=== PATIENT | male | born 1940 | race Caucasian/White ===

== ENCOUNTER 2018-12-26 21:33 | Inpatient (IN) ==
[2018-12-26] MEDS ORDERED: ZOFRAN ODT PO ONE (22:25)
[2018-12-26] MEDS ORDERED: NS 1,000 ML IV ONE (22:37)
--- NOTE | 2018-12-26 23:52 | PROVIDER DOCUMENTATION ---
This chart was entered by Nuzhat Can Scribe, acting as scribe for Luh Noonan MD. HPI-Abdominal Pain/GI Problem - General Chief Complaint: Nausea/Vomiting Stated Complaint: ON ANTIBIOTICS, NAUSEA, VOMITING Time Seen by Provider: 12/26/18 22:37 Source: patient Allergies/Adverse Reactions: Patient Allergies Allergy/AdvReac Type Severity Reaction Status Date / Time codeine Allergy Severe NAUSEA/VOMI Verified 09/24/15 17:14 TING Home Medications: Home Medication List Medication Instructions Recorded Confirmed Last Taken Type Digoxin 125 mcg PO DAILY 09/24/15 09/24/15 09/24/15 History 125 mcg Isosorbide Mononitrate [Isosorbide 30 mg PO DAILY 09/24/15 09/24/15 09/24/15 History Mononitrate ER] 30mg Metoprolol Tartrate 25 mg PO BID 09/24/15 09/24/15 09/24/15 History 12.5 mg Simvastatin 20 mg PO DAILY 09/24/15 09/24/15 09/23/15 History 10mg Warfarin Sodium [Coumadin] 2 mg PO DAILY 09/24/15 09/24/15 09/24/15 History 2mg Aspirin 81 mg PO DAILY #0 chewtab 09/29/15 Unknown Rx Digoxin [Lanoxin] 125 microgm PO DAILY #0 tablet 09/29/15 Unknown Rx Haloperidol [Haldol] 2 mg PO QHS #30 tablet 09/29/15 Unknown Rx Isosorbide Mononitrate E.r. [Imdur] 30 mg PO DAILY #0 tablet 09/29/15 Unknown Rx Levofloxacin [Levaquin] 750 mg PO DAILY #7 tablet 09/29/15 Unknown Rx Lorazepam [Ativan] 0.5 mg PO TID PRN #30 tablet 09/29/15 Unknown Rx Metoprolol [Lopressor] 12.5 mg PO BID #0 tablet 09/29/15 Unknown Rx SIMVAstatin [Zocor] 10 mg PO QHS #0 tablet 09/29/15 Unknown Rx Saline Nasal [place] [[place] Nasal 1 applicatn ZEYNEP PRN PRN #1 bottle 09/29/15 Unknown Rx [place]] Warfarin [Coumadin] 2.5 mg PO QHS #30 tablet 09/29/15 Unknown Rx Ciprofloxacin HCl [Cipro] 250 mg PO BID #14 tab 12/14/18 Unknown Rx - History of Present Illness-ABD Nature of Presenting Problems: Pt is 78/M presenting to ED w/ left mid-ABD pain and vomiting for a few days now. pt was recently seen for diverticulitis and placed on abx cipro and flagyl. denied diarrhea or fever. Review of Systems - Adult - REVIEW OF SYSTEMS - ADULT Constitutional: reports: no symptoms reported Eyes: reports: no symptoms reported Ears, Nose, Mouth & Throat: reports: no symptoms reported Cardiovascular: reports: no symptoms reported Respiratory: reports: no symptoms reported Gastrointestinal: reports: no symptoms reported Genitourinary: reports: no symptoms reported Musculoskeletal: reports: no symptoms reported Integumentary: reports: no symptoms reported Neurological: reports: no symptoms reported Psychiatric: reports: no symptoms reported Endocrine: reports: no symptoms reported Hematologic/Lymphatic: reports: no symptoms reported Allergic/Immunologic: reports: no symptoms reported All Other Systems: Reviewed and Negative Past History - Adult - PAST MEDICAL HISTORY-ADULT Review of Records: reports: Old Records Reviewed, Nursing Assessment Review, Medications Reviewed, Social history reviewed & non-contributory. Major Childhood Illnesses: reports: denies history Cardiovascular: reports: denies history Respiratory: reports: denies history Gastrointestinal: reports: denies history Obstetrical/Gynecological: reports: denies history Genitourinary: reports: denies history Musculoskeletal: reports: denies history Neurological: reports: denies history Endocrine/Immune: reports: denies history Other Conditions: reports: denies history - IMMUNIZATION STATUS Childhood Immunizations: See Nurse Assessment Flu Vaccine: See Nurse Assessment - FAMILY HISTORY Family History: reviewed, not pertinent - SOCIAL HISTORY Smoking: denies Substance Use: none/never Alcohol Use Frequency: never Living Situation: family Physical Exam-General - PHYSICAL EXAM-ADULT Initial Vital Signs Reviewed: Yes - CONSTITUTIONAL General Appearance: appears well, alert, no apparent distress - EYES Eyes: PERRL/EOMI, pink conjunctivae - HEAD, EARS, NOSE, MOUTH & THROAT HENMT: normocephalic/atraumatic, moist mucous membranes, normal ENT inspection - NECK Neck: non-tender, full range of motion, supple - RESPIRATORY Respiratory: chest non-tender, lungs clear, normal breath sounds, no pleuratic chest pain, no respiratory distress - CARDIOVASCULAR Cardiovascular: normal peripheral pulses (tachycardia), other (pitting edema 1+) - GASTROINTESTINAL (ABDOMEN) Abdominal Exam: guarding, rigid, tenderness (left mid-abd) - MUSCULOSKELETAL Back Exam: CVA tenderness (left) Extremity: normal range of motion, non-tender, normal gait - SKIN Integumentary: normal color, normal turgor, warm/dry - NEUROLOGIC Neurologic: grossly normal, no motor/sensory deficits - PSYCHIATRIC Psych/Mental Status: normal thought content, normal thought process, oriented x 3 Progress - PLAN OF CARE/RESULTS Progress/Plan/Lab Results: Vital Signs - 8 hr 12/26/18 21:36 Temperature 97.8 F Pulse Rate 96 H Respiratory Rate 20 Blood Pressure 132/74 O2 Sat by Pulse Oximetry 100 Orders Category Date Time Status Cardiac Monitoring DIRECTED Care 12/26/18 22:36 Active Oxygen Therapy- ED Nursing DIRECTED Care 12/26/18 22:36 Active Saline Loc NOW Care 12/26/18 22:[address] ABD/PELVIS W/IV CONT ONLY [CT] Stat Exams 12/26/18 22:35 Ordered CBC WITH ELECTRONIC DIFF [HEME] Stat Lab 12/26/18 22:34 Uncollected CK PROFILE [SP CHEM] Stat Lab 12/26/18 22:36 Uncollected COMPREHENSIVE METABOLIC PANEL [CHEM] Stat Lab 12/26/18 22:34 Uncollected DIGOXIN [TDM] Stat Lab 12/26/18 22:35 Ordered PRO B-NATRIURETIC PEPTIDE Stat Lab 12/26/18 22:36 Uncollected PROTIME WITH INR [COAG] Stat Lab 12/26/18 22:36 Uncollected PTT [COAG] Stat Lab 12/26/18 22:36 Uncollected TROPONIN T Stat Lab 12/26/18 22:34 Uncollected URINALYSIS W/POSS RFLX CULT [URINALYSIS] Stat Lab 12/26/18 22:34 Uncollected Ondansetron Odt [Zofran Odt] Med 12/26/18 22:25 Discontinued 4 mg PO NOW ONE CP/SOB/Palp >45 yrs of Age Stat Oth 12/26/18 22:36 Ordered EKG [EKG] NOW Ther 12/26/18 22:34 Ordered - CONSULTS/PCP/HOSPITALIST Notification #1 *Consult/PCP/Hospitalist*: Dr. Terry Time Discussed: 23:47 Consult Disposition: Admit (to hospitalist and NGT, will see in AM) #2 Consult: Dr. Cruz Time Discussed: 23:48 Consult Disposition: Admit Departure - Departure Date of Disposition Decision: 12/26/18 Time of Disposition Decision: 23:48 DIAGNOSIS: Small bowel obstruction Disposition: ADMITTED INPATIENT 09 Certified Medical Emergency: Emergent Condition: Stable Referrals and Follow-Ups: Italo Pierce MD [Primary Care Provider] - - Critical Care Note This patient required my direct & personal management of CC.: No Attestation - Physician/ MARY Attestation The physician spent face to face time with patient:: Yes Advanced Practice Provider documentation review:: Supervising physician onsite and consulted in the evaluation and care of this patient. The physician did have a face to face encounter with the patient. This chart was documented by the indicated scribe, (Nuzhat Can, Vicibarlene) and accurately reflects the services I performed and decisions made by me, Luh Noonan MD, as attested by the provider's signature.
[2018-12-26 23:54] LABS: BASO# 0.03 X1000 (0.0-0.2); BASO% 0.4 % (0.0-0.8); EOS# 0.07 X1000 (0.0-0.7); EOS% 0.9 % (0.0-10.0); HEMATOCRIT 43.9 % (42.0-52.0); HEMOGLOBIN 14.9 g/dL (14.0-18.0); IMM GRAN# 0.02 X1000 (0.0-0.04); IMM GRAN% 0.3 % (0.0-0.5); LYMPH# 1.47 X1000 (1.2-3.4); LYMPH% 18.4 % (20.5-51.1); MCH 31.3 PG (27-31); MCHC 33.9 g/dL (33-37); MCV 92.2 FL (81-99); MONO# 0.42 X1000 (0.11-0.59); MONO% 5.3 % (1.7-9.3); MPV 9.5 FL (7.4-10.4); NEUT# 5.96 X1000 (1.4-6.5); NEUT% 74.7 % (42.2-75.2); PLT 250 X1000 (130-400); RBC 4.76 XMIL (4.7-6.1); RDW 14.9 % (11.5-14.5); WBC 7.97 X1000 (4.8-10.8)
[2018-12-27] MEDS ORDERED: ATIVAN IV ONE (00:07)
[2018-12-27] MEDS ORDERED: ATIVAN ONE (00:10)
[2018-12-27 00:20] LABS: ALB/GLOB RATIO 1.1; ALBUMIN 4.2 g/dL (3.5-5.0); CALCIUM 9.8 mg/dL (8.8-10.2); CREATININE 1.2 mg/dL (0.7-1.2); POTASSIUM 4.2 mmol/L (3.5-5.1); TOTAL BILIRUBIN 0.77 mg/dL (0.20-1.00)
[2018-12-27 00:25] LABS: URINE SOURCE CLEAN CATCH
[2018-12-27 00:34] LABS: INR 3.07; PROTIME 33.9 Seconds (11.0-16.0)
[2018-12-27 00:35] LABS: PTT 44.3 Seconds (22.3-41.8)
[2018-12-27 00:37] LABS: BILIRUBIN URINE NEGATIVE (NEGATIVE); BLOOD URINE NEGATIVE (NEGATIVE); COLOR YELLOW; GLUCOSE URINE NEGATIVE (NEGATIVE); KETONE URINE 10 mg/dL (NEGATIVE); LEUKOCYTES URINE NEGATIVE (NEGATIVE); NITRITE URINE NEGATIVE (NEGATIVE); PH URINE 6.5; PROTEIN URINE TRACE mg/dL (NEGATIVE); TURBIDITY URINE CLEAR (CLEAR); UROBILINOGEN URINE NORMAL (NORMAL)
[2018-12-27 00:38] LABS: UR EPITHELIAL CELLS <10 /HPF (<10); URINE BACTERIA NEGATIVE /HPF; URINE RBC <10 /HPF (<10); URINE WBC <10 /HPF (<10)
[2018-12-27 00:43] LABS: SP GRAVITY URINE 1.015
[2018-12-27] MEDS ORDERED: ZANTAC 50 MG in NS 50 ML IV SCH (01:00)
[2018-12-27] MEDS ORDERED: TYLENOL PR PRN (03:02)
--- NOTE | 2018-12-27 03:31 | HISTORY AND PHYSICAL ---
CHIEF COMPLAINT: Abdominal pain and nausea, vomiting. HISTORY OF PRESENT ILLNESS: This is a 78-year-old gentleman of Dr. Muniz who comes in with abdominal pain. He has had nausea and vomiting for about 2 days. Initially, he had problems, I think, starting on the , and then the . I think he was in the ER on the , and then the , it looks like. On the , he had I guess urinary retention, but his tests were negative. On the , he had a CT scan which showed diverticulosis with diverticulitis, and he was treated with Cipro and Flagyl, which he has been on since the . I think he clinically improved up until 2 days ago, when he started having nausea, vomiting, and he did not have a bowel movement, by report. He reports nonbloody emesis, kind of yellowish, nonbilious, but it has been intractable. He has not really been able to keep anything down. He is also describing epigastric pain. CT scan revealed a partial small-bowel obstruction by preliminary report, and rest of test was negative. He had an abrupt transition point with aortic bifurcation, and there is prominent sigmoid diverticula, etiology is uncertain, but was an admitted for treatment. He has lost 20 pounds in the last 3 weeks. PAST MEDICAL HISTORY: 1. Hypertension. 2. Dyslipidemia. 3. Atrial fibrillation. 4. CAD status post stent. 5. History of CVA. 6. Benign prostatic hypertrophy. 7. Diverticulosis. 8. Right lower extremity ORIF. 9. Right clavicle fracture. PAST SURGICAL HISTORY: 1. Right total knee replacement. 2. PCI. 3. Right clavicle fracture repair. 4. Dupuytren's contracture repair. FAMILY HISTORY: Positive for CAD in his father. SOCIAL HISTORY: No tobacco or ethanol. ALLERGIES: He is allergic to codeine alone. MEDICATION LIST: He is currently on Coumadin for atrial fibrillation, digoxin, Imdur, metoprolol, simvastatin, Haldol, Zocor, aspirin, Ativan, Cipro, Levaquin, Lopressor. PHYSICAL EXAM: VITAL SIGNS: Blood pressure is 132/74, heart rate of 96, respiratory rate 20, temperature 97.8 degrees, 100% on room air. CARDIOVASCULAR: Regular rate and rhythm. PULMONARY: Bilateral breath sounds. Clear to auscultation. GASTROINTESTINAL: Soft. He was distended. He had some mild tenderness throughout his abdomen, mostly in the lower quadrants. He had no rebound, no guarding. MUSCULOSKELETAL: 4/5 in all 4 extremities. NEUROLOGIC: Nonfocal. SKIN: Clean, dry, intact. LABORATORY DATA: White count 7, hemoglobin and hematocrit 14 and 43, platelets 250,000. INR is 3. BUN and creatinine are 25 and 1.2. AST and ALT were 62 and 58, respectively. ProBNP was 2161. Lipase was mildly elevated at 77, but he has had protracted nausea and vomiting. ASSESSMENT: A 78-year-old male with history of abdominal pain, nausea, vomiting, and now CT findings consistent with a small-bowel obstruction without a clear etiology. There is concern over diverticulitis. 1. Partial small-bowel obstruction. We will initiate nasogastric decompression. Continue IV fluids. Continue analgesics, antiemetics, and question about antibiotics. He does not have a white count. He had recent diverticulitis and he has only completed 8 days of antibiotics. I will initiate some Zosyn. I would have primary team re-evaluate in the morning if this is necessary, once we get a follow-up report on his radiology report, which will be Dr. Pierce, his primary care physician, and re-evaluate. 2. Atrial fibrillation. We will continue to monitor. He may need his other medications once they are resolved. He is on several medications, but the home medication list has a lot of duplications. I am holding his Coumadin now in case he needs any surgical instrumentation. We will follow his PT/INR. 3. Atrial fibrillation. Appears to be rate controlled. Again, holding his PT/INR and we will continue to monitor. 4. Possible history of vascular dementia. He seems like he is doing pretty well. I will put in some p.r.n. Haldol. Apparently, he has needed that as an outpatient in case there is any agitation, but he seems to be pretty together currently. DISPOSITION: Pending his clinical status. Dr. Terry will evaluate in the morning. We will continue conservative measures and check repeat plain films tomorrow and follow. Resume care per Dr. Pierce or covering physician in the morning. cc: Flo Cruz MD
[2018-12-27] MEDS: PEPCID IV SCH ×2 (03:45→17:39)
[2018-12-27] MEDS: NS 1,000 ML IV SCH ×3 (03:45→23:33)
[2018-12-27] MEDS: SODIUM CHLORIDE 0.9% INJ SCH (03:45)
[2018-12-27] MEDS: ZOSYN 3.375 GM in NS 50 ML IV SCH ×4 (03:45→20:47)
--- NOTE | 2018-12-27 06:35 | Diag Imaging Result Doc PS360 ---
CT ABD/PELVIS W/IV CONT ONLY - 12/26/2018 INDICATION: pyelonephritis COMPARISON: 12/14/2018 FINDINGS: Stable cardiomegaly. Stable calcified pleural plaques in the lung bases bilaterally consistent with old asbestos exposure. There is also mild fibrosis in the lung bases. There is advanced coronary artery disease. There is a high-grade proximal small bowel obstruction, with distended small bowel loops and severe distention of the stomach. This is in the central abdomen, just in front of the aorta. Otherwise abdominal organs remain normal. There is severe diverticulosis of the colon. Urinary bladder, prostate, and rectum are normal. There is severe peripheral vascular disease. There are moderate degenerative changes of the spine. No acute or suspicious bony lesion. IMPRESSION: 1. High-grade proximal small bowel obstruction. This has occurred in the region of the subtle inflammation on the prior exam. This may represent a mass or enteritis. 2. Cardiomegaly and pulmonary fibrosis. 3. Severe diverticulosis of the sigmoid colon. This exam was performed using automated exposure control, adjustment of mA or kV according to patient size, and/or use of iterative reconstruction technique Electronically signed by Cody Allen 12/27/2018 6:32 AM
--- NOTE | 2018-12-27 06:37 | GENERAL SURGERY CONSULTATION ---
DATE: 12/27/2018 DATE AND TIME OF EXAM: 12/27/2018 at 6 o'clock in the morning. HISTORY OF PRESENT ILLNESS: Mr. Waters is a pleasant 78-year-old gentleman who presented to the emergency department last night with refractory vomiting that has been present for the past few days. He has some symptoms dating back a couple weeks ago for which he has been treated for diverticulitis as an outpatient with p.o. antibiotics. However, the past few days he has developed refractory vomiting with periumbilical pain. CT scan was done last night which shows significant diverticula with some inflammation in the sigmoid loop. It apparently involve a portion of his small bowel as well. He has a transition point in the small bowel just cephalad to his sigmoid loop. This appears to be the point of obstruction. PAST MEDICAL HISTORY: Pertinent for atrial fibrillation for which he has taken Coumadin for many years. He has had a coronary stent. He has hypertension, dyslipidemia, history of CVA, benign prostatic hypertrophy. PAST SURGICAL HISTORY: Includes a right total knee replacement, right clavicle fracture repair, Dupuytren's contraction repair. SOCIAL HISTORY: Denies smoking or alcohol usage. He is , has an attentive . FAMILY HISTORY: Pertinent for coronary artery disease. MEDICATIONS: Listed includin. Metoprolol. 2. Digoxin. 3. Imdur. 4. Coumadin. 5. Simvastatin. 6. Aspirin. 7. Haldol. 8. Ativan. 9. Most recently ciprofloxacin. ALLERGIES: Codeine. REVIEW OF SYSTEMS: Negative except as noted above. He denies any chest pain, shortness of breath. PHYSICAL EXAMINATION: Vital Signs: He is afebrile, heart rate 70, respiratory rate 18, blood pressure 120/75. Lungs: He has bilateral breath sounds. Heart: Irregular rate and rhythm. Abdomen: Soft. Bowel sounds are active. No hernia palpated. Extremities: He has trace peripheral edema. He is awake and alert. LABORATORY DATA: White count is and 8000, hemoglobin 14.9. His INR is 3.0. BUN 25, creatinine 1.2. ProBNP is 2161. Lipase is 77. Digoxin level was 0.6. ASSESSMENT AND PLAN: I think this gentleman does have a small bowel obstruction that is secondary to his acute diverticulitis. He is anticoagulated. He does not appear to be septic. I think the best thing to do would be to decompresses his proximal small bowel and stomach, keep him on IV antibiotics, correct his coagulopathy and then I think he will come to surgery, which will probably require a sigmoid resection along with an end colostomy, and whether we have to do anything to his small bowel or not will be determined at the time of the surgery. Will talk further with Dr. Pierce, his regular physician. cc: Trav Terry MD
--- NOTE | 2018-12-27 06:41 | EKG Report ---
Test Performed on : 12/26/2018 11:28:01 PM Test Reason : cp Blood Pressure : / mmHG Vent. Rate : 064 BPM Atrial Rate : 357 BPM P-R Int : 000 ms QRS Dur : 074 ms QT Int : 396 ms P-R-T Axes : 000 007 -11 degrees QTc Int : 408 ms Atrial fibrillation. with premature ventricular or aberrantly conducted complexes. Low voltage QRS Nonspecific ST and T wave abnormality Abnormal ECG When compared with ECG of 14-DEC-2018 00:57, (Unconfirmed) Questionable change in QRS axis Non-specific change in ST segment in Inferior leads Nonspecific T wave abnormality no longer evident in Lateral leads QT has shortened Unconfirmed Result
[2018-12-27 07:46] LABS: INR 3.35; PROTIME 36.3 Seconds (11.0-16.0)
--- NOTE | 2018-12-27 07:49 | Diag Imaging Result Doc PS360 ---
EXAM: CHEST/ABD TUBE PLACEMENT 12/27/2018 HISTORY: NG tube placement TECHNIQUE: AP portable for NG tube placement COMMENT: There is an NG tube with its tip in the stomach. There is apparent right basilar atelectasis. IMPRESSION: NG tube in the stomach. Electronically signed by Lukas King 12/27/2018 7:47 AM
[2018-12-27] MEDS ORDERED: LANOXIN IV SCH (13:15)
[2018-12-27] MEDS ORDERED: LOPRESSOR IV SCH (13:15)
[2018-12-27] MEDS: FLAGYL 500 MG/NS 500 MG/100 ML IVPB IV SCH ×2 (14:22→20:47)
--- NOTE | 2018-12-27 15:17 | Diag Imaging Result Doc PS360 ---
CHEST-PORTABLE - 12/27/2018 3:00 PM INDICATION: NG tube placement COMPARISON: 2:40 AM FINDINGS: There is a nasogastric tube in the stomach in good position. IMPRESSION: Nasogastric tube in the stomach in good position. Electronically signed by Cody Allen 12/27/2018 3:15 PM
[2018-12-27] MEDS: HALDOL IV PRN (20:47)
[2018-12-28] MEDS: HALDOL IV PRN (01:41)
[2018-12-28] MEDS: FLAGYL 500 MG/NS 500 MG/100 ML IVPB IV SCH ×3 (04:23→20:33)
[2018-12-28] MEDS: PEPCID IV SCH ×2 (04:23→17:09)
[2018-12-28] MEDS: ZOSYN 3.375 GM in NS 50 ML IV SCH ×4 (04:23→20:33)
[2018-12-28 07:30] LABS: BASO# 0.03 X1000 (0.0-0.2); BASO% 0.5 % (0.0-0.8); EOS# 0.06 X1000 (0.0-0.7); EOS% 0.9 % (0.0-10.0); HEMATOCRIT 39.4 % (42.0-52.0); HEMOGLOBIN 13.4 g/dL (14.0-18.0); LYMPH# 1.61 X1000 (1.2-3.4); LYMPH% 24.8 % (20.5-51.1); MCH 31.6 PG (27-31); MCV 92.9 FL (81-99); MONO# 0.53 X1000 (0.11-0.59); MONO% 8.2 % (1.7-9.3); MPV 9.7 FL (7.4-10.4); NEUT# 4.27 X1000 (1.4-6.5); NEUT% 65.6 % (42.2-75.2); PLT 209 X1000 (130-400); RBC 4.24 XMIL (4.7-6.1); RDW 14.7 % (11.5-14.5)
--- NOTE | 2018-12-28 07:33 | Diag Imaging Result Doc PS360 ---
EXAM: CHEST-1 VIEW 12/27/2018 HISTORY: ng tube placement TECHNIQUE: AP portable at 2300 COMMENT: There is an NG tube with its tip in the fundus of the stomach. IMPRESSION: The NG tube is in the stomach. Electronically signed by Lukas King 12/28/2018 7:31 AM
--- NOTE | 2018-12-28 07:36 | Diag Imaging Result Doc PS360 ---
EXAM: CHEST-1 VIEW 12/28/2018 HISTORY: ng tube placement TECHNIQUE: AP portable at 0056 COMMENT: The NG tube tip is in the fundus of the stomach. IMPRESSION: NG tube in the stomach. Electronically signed by Lukas King 12/28/2018 7:33 AM
[2018-12-28 07:38] LABS: INR 3.33; PROTIME 36.1 Seconds (11.0-16.0)
[2018-12-28 08:03] LABS: AGAP 13; ALB/GLOB RATIO 1.2; ALBUMIN 3.3 g/dL (3.5-5.0); ALKALINE PHOSPHATASE 71 U/L (32-122); BUN 15 mg/dL (8-22); CHLORIDE 104 mmol/L (98-107); COSMO 276; CREATININE 1.1 mg/dL (0.7-1.2); ESTIMATED GFR > 60; GLUCOSE 93 mg/dL (70-104); GOT 35 U/L (10-34); GPT 37 U/L (10-44); MAGNESIUM 1.8 mg/dL (1.5-2.7); POTASSIUM 3.8 mmol/L (3.5-5.1); SODIUM 138 mmol/L (136-145); TCO2 21 mmol/L (25-35); TOTAL BILIRUBIN 0.84 mg/dL (0.20-1.00)
[2018-12-28] MEDS: NS 1,000 ML IV SCH ×2 (08:51→20:33)
--- NOTE | 2018-12-28 12:23 | PROGRESS NOTE ---
DATE: 12/28/2018 SUBJECTIVE: Mr. Waters is a 78-year-old white male who is admitted with diverticulitis and also a small bowel obstruction. He has had an NG tube but he has pulled out multiple times over the last 12 hours. OBJECTIVE: This morning, he is sleeping, he is in restraints but his abdomen appears to be soft. He has had no vomiting. His heart rate is 99 blood pressure 161/74, O2 saturation 93%. He is afebrile. His white blood cell count is normal. His BUN and creatinine are 15 and 1.1. Liver function tests are essentially normal. PLAN: We will leave his NG tube out at this time because he continues to pull it out and his abdomen appears to be soft to me on examination. He has not had a bowel movement. We will leave him n.p.o. except ice chips. I have spoken to the nurses about his care. cc: MD Italo Benitez MD
--- NOTE | 2018-12-28 13:31 | PROGRESS NOTE ---
DATE: 12/28/2018 SUBJECTIVE: The patient has pulled his NG tube out several times, and Dr. Cintron has allowed him to leave that out as he is improved with his abdominal distention and is not throwing up currently. He has had some restraints on to try to help with that and does have some confusion. OBJECTIVE: Afebrile, pulse 99, respirations 18, blood pressure 161/74, O2 saturation room air 93% to 97%.Cardiovascular: Irregularly irregular. Lungs: Clear. Abdomen: Soft. Active bowel sounds. No major point tenderness. Extremities: No calf tenderness, cords, or edema. Neurologic: Cranial nerves are intact. He moves all extremities well. Baseline chronic mild confusion noted. ASSESSMENT: 1. Small bowel obstruction. 2. Severe diverticulitis. 3. Chronic atrial fibrillation. 4. Dementia. PLAN: Dr. Cintron has allowed him to leave the NG tube out. We will continue IV Zosyn and Flagyl. He has Haldol ordered as needed for confusion. His INR not coming down a great deal thus far. We will follow the INR closely. Repeat CBC and BMP in the morning. desires him to have a bedside commode and we will set that up and he will be up with assistance only. cc: Italo Pierce MD
[2018-12-28] MEDS: SODIUM CHLORIDE 0.9% INJ SCH (17:09)
[2018-12-29] MEDS: ZOSYN 3.375 GM in NS 50 ML IV SCH ×4 (03:54→21:00)
[2018-12-29] MEDS: SODIUM CHLORIDE 0.9% INJ SCH (03:55)
[2018-12-29] MEDS: PEPCID IV SCH ×2 (03:55→17:03)
[2018-12-29] MEDS: FLAGYL 500 MG/NS 500 MG/100 ML IVPB IV SCH ×3 (04:00→21:00)
[2018-12-29 07:48] LABS: BASO# 0.02 X1000 (0.0-0.2); BASO% 0.3 % (0.0-0.8); EOS# 0.01 X1000 (0.0-0.7); EOS% 0.1 % (0.0-10.0); HEMATOCRIT 39.8 % (42.0-52.0); HEMOGLOBIN 13.7 g/dL (14.0-18.0); IMM GRAN# 0.02 X1000 (0.0-0.04); IMM GRAN% 0.3 % (0.0-0.5); LYMPH% 21.6 % (20.5-51.1); MCH 31.8 PG (27-31); MCHC 34.4 g/dL (33-37); MCV 92.3 FL (81-99); MONO# 0.61 X1000 (0.11-0.59); MONO% 8.2 % (1.7-9.3); MPV 9.9 FL (7.4-10.4); NEUT# 5.16 X1000 (1.4-6.5); NEUT% 69.5 % (42.2-75.2); PLT 214 X1000 (130-400); RBC 4.31 XMIL (4.7-6.1); RDW 14.9 % (11.5-14.5); WBC 7.42 X1000 (4.8-10.8)
[2018-12-29 07:54] LABS: INR 4.23; PROTIME 43.6 Seconds (11.0-16.0)
--- NOTE | 2018-12-29 08:07 | PROGRESS NOTE ---
DATE: 12/29/2018 A 78-year-old, white gentleman admitted with abdominal pain, nausea, vomiting. The patient also had a CT scan which revealed partial small bowel obstruction. The patient had a history of diverticulitis when he had a CT done on the . The patient lost 20 pounds of weight in the last 3 weeks. Patient admitted, started on IV antibiotics. The patient had an NG tube placed, which he pulled out multiple times. The surgeon decided to keep the tube out. Patient is doing fair. He did have two bowel movements yesterday. He denied any abdominal pain or distention. No chest pain or palpitations. No unusual cough or expectoration. Denied any dysuria or hematuria. Admission history and physical noted. PAST MEDICAL HISTORY: Significant for hypertension, hyperlipidemia, atrial fibrillation, coronary artery disease, status post stent, history of CVA, BPH, recent diverticulitis, a right clavicle fracture, history of right lower extremity ORIF. The patient had a right total knee replacement, PCI, Dupuytren's contracture repair, and right clavicular fracture repair. PHYSICAL EXAMINATION: Vital Signs: Blood pressure 145/72, pulse 61, respirations 20, temperature 97.7 degrees. Skin: No rash or petechiae. HEENT: Head atraumatic and normocephalic. [place] conjunctivae. Anicteric sclerae. Extraocular muscle movement normal. Fundus cannot be penetrated. Good oral hygiene. No tonsillopharyngeal congestion or exudate. Ears and nose benign. Neck: Supple. No JVD, thyromegaly, or lymphadenopathy. Chest: Bibasilar crepitation. Heart: S1 and S2 heard, which is irregularly irregular. Abdomen: Soft, globular. Bowel sounds present. Extremities: No cyanosis, clubbing. No acute DVT. [employer]: Alert, awake. Answering questions fairly well. LABORATORY DATA: Blood work done yesterday noted. Prothrombin time was 3.33. Blood work ordered for today, results are pending. ASSESSMENT: Patient's medical problems include: 1. Small bowel obstruction. Clinically, patient is doing better. 2. Diverticulitis. Surgeon following patient with us. 3. Chronic atrial fibrillation. 4. Dementia and delirium, improving. PLAN: I will follow today's lab. Continue current treatment. Close observation. cc: WilliamMD Italo San MD
[2018-12-29 08:16] LABS: CALCIUM 8.1 mg/dL (8.8-10.2); CREATININE 1.2 mg/dL (0.7-1.2); POTASSIUM 3.5 mmol/L (3.5-5.1)
[2018-12-29] MEDS ORDERED: VITAMIN K SUBQ ONE (08:33)
--- NOTE | 2018-12-29 08:56 | PROGRESS NOTE ---
DATE: 12/29/2018 Mr. Waters was admitted with diverticulitis and small bowel obstruction. Initially had an NG tube but it kept being pulled out by the patient. Yesterday, his abdomen was soft and today it remains soft. Since the NG tube has been out, he has had no nausea or vomiting. I am not sure whether he has had any bowel activity. His heart rate is 61, blood pressure 145/69, O2 saturation 97%. He is afebrile. His white blood cell count is normal, his hematocrit is 39%. Electrolytes are within normal limits. BUN is 16, creatinine is 1.2. I am awaiting an abdominal film this morning. I feel we ought to try to advance his diet. He continues on IV antibiotics, Zosyn for diverticulitis. cc: MD Italo Benitez MD
--- NOTE | 2018-12-29 08:57 | Diag Imaging Result Doc PS360 ---
FLAT/UPRIGHT ABD/1 VIEW CHEST - 12/29/2018 INDICATION: Small bowel obstruction. TECHNIQUE: COMPARISON: 12/28/2018 FINDINGS: Stable cardiomegaly. Stable ill-defined opacities throughout the lung doran bilaterally. These are worst in the lung bases. The nasogastric tube has been removed. There is a nonobstructive bowel gas pattern. No free air or abnormal calcifications. IMPRESSION: No evidence of bowel obstruction. Electronically signed by Cody Allen 12/29/2018 8:55 AM
[2018-12-29] MEDS: KLOR-CON PO ONE ×2 (09:49→09:54)
[2018-12-29] MEDS: NS 1,000 ML IV SCH ×3 (09:49→19:15)
[2018-12-29] MEDS ORDERED: POTASSIUM CHLORIDE 20 MEQ/SWI 20 MEQ/100 ML IVPB IV ONE ×2 (11:15→18:12)
[2018-12-29] MEDS: ALBUTEROL NEB INH PRN (17:14)
--- NOTE | 2018-12-29 17:46 | Diag Imaging Result Doc PS360 ---
CHEST-PORTABLE - 12/29/2018 5:08 PM INDICATION: Wheezing, Coarse Chest Soundss COMPARISON: 8:46 AM FINDINGS: There is worsening, diffuse bilateral infiltrates. This is mainly interstitial. Stable cardiomegaly. No pneumothorax or large pleural effusion. IMPRESSION: Worsening diffuse bilateral infiltrates. Highly suggestive of pulmonary edema. Electronically signed by Cody Allen 12/29/2018 5:43 PM
[2018-12-29] MEDS ORDERED: KLOR-CON PO ONE (18:13)
[2018-12-29] MEDS ORDERED: LASIX IV ONE (18:14)
[2018-12-30] MEDS: ZOSYN 3.375 GM in NS 50 ML IV SCH ×3 (04:31→14:36)
[2018-12-30] MEDS: FLAGYL 500 MG/NS 500 MG/100 ML IVPB IV SCH ×3 (04:31→22:59)
[2018-12-30] MEDS: PEPCID IV SCH ×2 (04:33→14:36)
[2018-12-30] MEDS: ALBUTEROL NEB INH PRN ×2 (07:25→11:41)
--- NOTE | 2018-12-30 09:00 | Diag Imaging Result Doc PS360 ---
EXAM: CHEST-PORTABLE HISTORY: pulm edema TECHNIQUE: Portable chest single view COMPARISON: 11/28/2018 FINDINGS: Poor inspiratory effort. There are hazy infiltrates bilaterally similar to the prior exam. No pleural effusions identified. Mild cardiomegaly. IMPRESSION: Stable chest. Electronically signed by Abdelrahman Huffman 12/30/2018 8:58 AM
--- NOTE | 2018-12-30 09:16 | PROGRESS NOTE ---
DATE: 12/30/2018 SUBJECTIVE: The patient has been confused this morning. Does not know his . He did know her some yesterday. He has had some agitation at times. No Haldol has been administered. According to his , for the last 3 months, she has noted marked changes in his personality where he would get agitated at times, and she would have to leave the house. OBJECTIVE: Vital Signs: Afebrile, pulse 92, respirations 22, blood pressure 159/82, O2 saturation on room air 88% to 97%. CV: Irregularly irregular. Lungs: Some upper airway noise. Patient currently sleeping. Abdomen: Soft. Active bowel sounds. Positive BM, large per his . Extremities: No calf tenderness, cords, or edema. Neurologic: Did not arouse the patient at this time. IMAGING AND LABORATORY DATA: Labs were reviewed from yesterday showing normal white count of 7.4, hemoglobin 13.7. INR yesterday elevated at 4.23. BMP normal. Received some Lasix yesterday after chest x-ray revealed some pulmonary edema pattern. ASSESSMENT: 1. Small-bowel obstruction, appears to be improved. 2. Severe diverticulitis. 3. Chronic atrial fibrillation, previously on Coumadin, now off Coumadin, but still remains anticoagulated despite being off the Coumadin. He received some vitamin K yesterday x1 dose. 4. Dementia, worsened with hospitalization and infection. PLAN: At this time, abdomen is very soft. Active bowel sounds. Will repeat a chest x-ray, and continue Zosyn and Flagyl, and reduce his IV fluids slightly. Will continue to follow his INR expectantly as it appears that he may not need the surgery at this point. Continue to follow his mental status closely. Will come back and reassess him today neurologically after he is awake. He has had no nausea or vomiting. Will continue to follow and support. cc: Italo Pierce MD
[2018-12-30] MEDS: NS 1,000 ML IV SCH ×3 (11:31→19:49)
--- NOTE | 2018-12-30 14:38 | GENERAL SURGERY PROGRESS NOTE ---
DATE: 12/30/2018 Mr. Waters remain somnolent. His abdomen is soft and nontender. He is really not taking much by mouth yet. His bowels have been moving however. White count is normal. His INR remains out. I think we need to mobilize him some and see if we can increase his activity. We will have to see how he does with the liquids. Hopefully, he will continue to improve. At some point, he may require a small bowel followthrough to see if any of the contrast hangs up in his jejunum which is the site of suspicion. cc: MD Italo Alas MD
[2018-12-30] MEDS ORDERED: LASIX IV ONE (16:27)
[2018-12-30] MEDS: ALBUTEROL NEB INH SCH ×2 (16:35→20:00)
--- NOTE | 2018-12-30 16:49 | PROGRESS NOTE ---
DATE: 12/30/2018 SUBJECTIVE: Patient re-evaluated and is more alert and talkative, but has slurred speech and left arm weakness is prominent. He is arousable and answers questions and able to converse some but still remains abnormal in regard to his neurological status. OBJECTIVE: Vital signs: Afebrile, pulse 86, respirations 20, blood pressure 145/84, O2 saturation on 2 L 95%. CV: Irregularly irregular. Lungs: Some crackles, right greater than left. Some prominent productive cough of frothy phlegm. IMAGING: Chest x-ray this morning reveals poor inspiratory effort, hazy infiltrates bilaterally, mild cardiomegaly. No pleural effusions. ASSESSMENT: 1. Left arm weakness and speech impairment, rule out cerebrovascular accident. 2. Remote history of cerebrovascular accident. 3. Chronic atrial fibrillation, currently taken off his Coumadin but with INR remaining out. 4. Small bowel obstruction, improved. 5. Diverticulitis. 6. Dementia. 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 We will check CT head without contrast. Leave him off anticoagulation as we are doing. Monitor his INR closely. We will give another dose of Lasix now. We reduced his IV fluids this morning. He is not taking anything in much orally, so we will leave him on low-dose IV fluids. Give potassium by IV. Await CT head. cc: Italo Pierce MD
[2018-12-30] MEDS: POTASSIUM CHLORIDE 20 MEQ/SWI 20 MEQ/100 ML IVPB IV SCH ×2 (17:41→20:08)
--- NOTE | 2018-12-30 21:26 | Diag Imaging Result Doc PS360 ---
EXAM: CT HEAD W/O CONTRAST INDICATION: lt arm weakness TECHNIQUE: This exam was performed using automated exposure control, adjustment of mA or kV according to patient size, and/or use of iterative reconstruction technique. COMPARISON: 09/24/2015 FINDINGS: There is a massive acute subdural hematoma overlying the right frontal and parietal lobes. It measures up to 4 cm at its maximum thickness. There is prominent sulcal effacement and there is up to 1.5 cm of leftward midline shift indicating subfalcine herniation. There is suggestion of mild mass effect on the right cerebral peduncle suggesting the early stages of uncal herniation. There is significant effacement of the lateral ventricles, especially on the right. The basilar cisterns remain uneffaced. The surrounding soft tissues and bony structures are essentially unremarkable. IMPRESSION: Massive acute subdural hematoma on the right with marked mass effect as detailed above. The findings were discussed with the patient's nurse, Henny Peng, at 12/30/2018 9:23 PM and was acknowledged. Electronically signed by Shay Ibarra 12/30/2018 9:24 PM
[2018-12-30] MEDS: MORPHINE IV PRN (22:58)
[2018-12-30] MEDS: HALDOL IV PRN (22:59)
[2018-12-31] MEDS: ALBUTEROL NEB INH SCH ×3 (00:01→08:13)
[2018-12-31] MEDS: ZOSYN 3.375 GM in NS 50 ML IV SCH ×2 (00:43→05:34)
[2018-12-31] MEDS: PEPCID IV SCH (03:04)
[2018-12-31] MEDS: MUCOMYST 20% INH SCH ×3 (05:35→09:17)
[2018-12-31] MEDS: FLAGYL 500 MG/NS 500 MG/100 ML IVPB IV SCH (05:35)
[2018-12-31] MEDS: NS 1,000 ML IV SCH (06:29)
--- NOTE | 2018-12-31 08:51 | PROGRESS NOTE ---
DATE: 12/31/2018 SUBJECTIVE: The patient continued to not do well during the day yesterday, and CT scan of the head was done, which showed a large subdural hematoma with early uncal herniation. Family has been with him through the night, and he has aroused and squeezed his daughter's hand and seemed to know her. He currently is not responsive. OBJECTIVE: Vital Signs: Afebrile, pulse 83, respirations 20, blood pressure 158/96, O2 saturation on room air is 93%. CV: Irregularly irregular. Lungs: Some rhonchi bilaterally, but mild. Abdomen: Nondistended. Neurologic: Patient obtunded. LABORATORY DATA: Labs not done at family request. ASSESSMENT: 1. Large subdural hematoma with early uncal herniation. 2. History of ischemic cerebrovascular accident, remote, on chronic Coumadin therapy per Cardiology. 3. Chronic atrial fibrillation, off Coumadin during this hospitalization, but with INR remaining elevated. 4. Small-bowel obstruction with probable stricture and severe diverticulitis. 5. Dementia. PLAN: Family desires the patient to be DO NOT RESUSCITATE level 1, and that is on the chart. They are aware of the gravity of the illness and are at his bedside. They desire removal of IVF and IV antibiotics, and that will be performed. Will concentrate on comfort measures as required. I spoke with Dr. Terry about the patient's condition as well. cc: Italo Pierce MD
[2018-12-31] MEDS: MORPHINE IV PRN ×2 (10:40→17:04)
[2019-01-01 08:49] LABS: INR 1.47; PROTIME 18.9 Seconds (11.0-16.0)
[2019-01-01] MEDS: MORPHINE IV PRN (08:51)
--- NOTE | 2019-01-01 12:17 | Diag Imaging Result Doc PS360 ---
CT HEAD W/O CONTRAST - 01/01/2019 INDICATION: subdural hematoma COMPARISON: 12/30/2018 FINDINGS: There is a stable large right subdural hematoma. This is mostly hyper dense consistent with recent blood. Stable significant midline shift to the left. No new hemorrhages. Remainder of the brain is fairly normal. IMPRESSION: No change from prior. This exam was performed using automated exposure control, adjustment of mA or kV according to patient size, and/or use of iterative reconstruction technique Electronically signed by Cody Allen 01/01/2019 12:15 PM
--- NOTE | 2019-01-01 12:32 | PROGRESS NOTE ---
DATE: 01/01/2019 SUBJECTIVE: The patient is seen this morning with his daughter in attendance. The patient has been able to awaken and speak with his daughter. He knows her. He moves his right arm. He moves his left leg minimally. He does not move his left arm. He has prominently altered speech, but she does understand some of the words he is saying. He knows her. OBJECTIVE: Vital Signs: Afebrile, pulse 100, respirations 20, blood pressure 154/92, O2 saturation room air 92 to 93 percent. CV: Irregularly irregular. Lungs: Lungs with mild rhonchi bilaterally. Deep respirations. Abdomen: Nontender, nondistended. Extremities: No major edema. Flaccid paralysis, left arm. Facial asymmetry noted. Patient does arouse. He moves his right arm and leg easily. Reviewed again the CT head without contrast done on 12/30 revealing massive acute subdural hematoma on the right with marked mass effect, early stages of uncal herniation noted. ASSESSMENT: 1. Large right subdural hematoma with early uncal herniation. 2. Remote history of ischemic cerebrovascular accident without major residual. 3. On longstanding chronic Coumadin therapy per Cardiology prior to this admission. 4. Chronic atrial fibrillation on chronic Coumadin therapy as stated. 5. Small bowel obstruction with possible stricture and severe diverticulitis. 6. Dementia. PLAN: Yesterday I had spoken with the patient's , and she desired to remove the antibiotics and IV fluids and make him a DNR level 1 as stated. Now that he has seemed to stabilize in regard to his deficits, his daughter desires for repeat CT scan of the head, and I will ask Dr. Palm to see the patient and give an opinion on his situation long-term. We discussed the possibility we would not be able to control his airway with eating, and might need a PEG tube, and the fact he likely will be markedly limited with movement of his left side, and she is aware. They wish to have another CT scan of the head done to make sure this area has stabilized, which I think this is very reasonable, so we will order that test. We will ask Dr. Palm to see the patient, and give an opinion on how aggressive to be in regard to his care from here on out. Yesterday, his had been adamant that she wanted comfort care. cc: Iatlo Pierce MD
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
[2019-01-01] MEDS: ZOSYN 3.375 GM in NS 50 ML IV SCH ×2 (16:57→22:49)
--- NOTE | 2019-01-01 17:19 | PROGRESS NOTE ---
DATE: 01/01/2019 I spoke with the patient's son and his grandson who are in attendance with him this evening. The patient does recognize them and is saying some intelligible words. He still has flaccid paralysis of his left arm but is moving his left toes and leg slightly and does move his right side fairly well. CT scan of the head was repeated without contrast and shows no change from prior a day and a half ago. Family had desired comfort measures only yesterday, and we had pursued that and stopped his antibiotics IV he was taking for his severe diverticulitis and stopped his IV fluids, but after he has stabilized, they are considering restarting some supportive measures, and I have discussed that with them in detail and will resume those measures of IV antibiotics in the form of Zosyn and Flagyl and we will resume IV fluids and give supportive measures. He remains a DNR level 1 at their request, and Dr. Palm's evaluation and consultation note was reviewed in detail. cc: Italo Pierce MD
[2019-01-01] MEDS: D5 NS + KCL 20 MEQ 1,000 ML IV SCH (17:38)
[2019-01-01] MEDS: FLAGYL 500 MG/NS 500 MG/100 ML IVPB IV SCH (21:13)
[2019-01-02] MEDS: ZOSYN 3.375 GM in NS 50 ML IV SCH ×4 (03:49→22:25)
[2019-01-02] MEDS: D5 NS + KCL 20 MEQ 1,000 ML IV SCH ×2 (03:51→15:18)
[2019-01-02] MEDS: FLAGYL 500 MG/NS 500 MG/100 ML IVPB IV SCH ×3 (05:00→21:07)
[2019-01-02 07:35] LABS: BASO# 0.02 X1000 (0.0-0.2); BASO% 0.2 % (0.0-0.8); EOS# 0.03 X1000 (0.0-0.7); EOS% 0.4 % (0.0-10.0); HEMATOCRIT 44.7 % (42.0-52.0); HEMOGLOBIN 15.2 g/dL (14.0-18.0); IMM GRAN# 0.03 X1000 (0.0-0.04); IMM GRAN% 0.4 % (0.0-0.5); LYMPH# 1.61 X1000 (1.2-3.4); LYMPH% 19.8 % (20.5-51.1); MCH 31.7 PG (27-31); MCV 93.1 FL (81-99); MONO# 0.69 X1000 (0.11-0.59); MONO% 8.5 % (1.7-9.3); MPV 9.8 FL (7.4-10.4); NEUT# 5.77 X1000 (1.4-6.5); NEUT% 70.7 % (42.2-75.2); PLT 234 X1000 (130-400); RDW 15.5 % (11.5-14.5); WBC 8.15 X1000 (4.8-10.8)
[2019-01-02 07:44] LABS: INR 1.28
[2019-01-02 08:12] LABS: AGAP 12; BUN 34 mg/dL (8-22); CALCIUM 8.5 mg/dL (8.8-10.2); CHLORIDE 115 mmol/L (98-107); COSMO 307; ESTIMATED GFR > 60; GLUCOSE 152 mg/dL (70-104); POTASSIUM 4.1 mmol/L (3.5-5.1); SODIUM 149 mmol/L (136-145); TCO2 22 mmol/L (25-35)
--- NOTE | 2019-01-02 12:54 | PROGRESS NOTE ---
DATE: 01/02/2019 SUBJECTIVE: Mr. Waters still has some diarrhea. He has been on Zosyn and Flagyl. His Clostridium difficile test is negative. He is DNR 1. His vital signs are stable. CBC is unremarkable. INR is 1.28. Electrolytes are normal. He has right subdural hematoma. According to his , he is much more alert and he tried to talk today. We will continue to watch him closely. -6 cc: MD Italo Burton MD
[2019-01-02] MEDS: CALMOSEPTINE OINTMENT TOP PRN (17:01)
[2019-01-02] MEDS: MORPHINE IV PRN (21:15)
[2019-01-03] MEDS: D5 NS + KCL 20 MEQ 1,000 ML IV SCH (00:10)
[2019-01-03] MEDS: ZOSYN 3.375 GM in NS 50 ML IV SCH ×4 (04:11→23:00)
[2019-01-03] MEDS: FLAGYL 500 MG/NS 500 MG/100 ML IVPB IV SCH ×3 (04:44→20:18)
[2019-01-03] MEDS ORDERED: APRESOLINE IV PRN (10:17)
--- NOTE | 2019-01-03 11:24 | PROGRESS NOTE ---
DATE: 01/03/2019 SUBJECTIVE: Patient has been more alert. He had a very good day yesterday, has been moving the left leg slightly, moves his right arm and leg. The family has given him some clear liquids and he is tolerating it well without definite aspiration, although they gave him some pudding, and it was questionable whether he could tolerate that exceedingly well, but did tolerate it. He has been able to speak with his family that he knows is family. Does have some speech impairment. OBJECTIVE: Vital Signs: Afebrile, pulse 81, respirations 18, blood pressure 143/88, O2 saturation 95% on room air. CV: Irregularly irregular. Lungs: Minimal rhonchi bilaterally. Abdomen: Soft, active bowel sounds, nontender, nondistended. Two bowel movements loose yesterday. Negative for Clostridium difficile toxin. Extremities: No calf tenderness, cords or edema. Neurologic: Speech impairment noted, but able to converse. He knows me and he knows his family. He does not move his left arm. He has flaccid paralysis there. He moves his left leg very slightly. Right arm and leg appear to have good range of motion and strength overall. LABORATORY: Labs from yesterday reviewed which showed a mildly elevated sodium at 149, potassium 4.1, blood sugar 152. Creatinine 1, BUN 34. White count normal at 8.15, hemoglobin 15.2, platelets 234. INR yesterday 1.28. ASSESSMENT: 1. Large right subdural hematoma, now stabilized. He is off anticoagulation. 2. Remote history of ischemic cerebrovascular accident on Coumadin therapy longstanding per Cardiology. 3. Chronic atrial fibrillation, previously on chronic Coumadin therapy as stated. 4. Small-bowel obstruction with severe diverticulitis. Overall improved clinically on antibiotics. 5. Baseline dementia. 6. Malnutrition. PLAN: Will resume his beta raisa IV at this point at low dose. We will hold off on any further treatment that might lower the blood pressure, except that family was concerned, so we will resume the Lopressor at low dose. We will leave him off anticoagulation of course. Dr. Palm is following patient. Will continue with full liquids, but avoid puddings, and will elevate the head of the bed. We discussed potential for aspiration. Family is aware. We will get a barium swallow with video eval and that is available in 3 days. We discussed possibility of PEG feeds if required and they desire to start process for rehab placement and will get consultation with [facility] in that regard. Physical therapy is working with the patient. Will continue that. He remains DNR level 1. Continue IV Zosyn and Flagyl for the diverticulitis. Dr. Terry of course is not planning on surgery at this point. Clinically, patient is improved in this regard. We will continue to focus our efforts on his recent subdural and deficit from that. It appears he is stabilized in that regard and will have long-term deficits, at least in the left arm and with his speech cc: Italo Pierce MD
[2019-01-03] MEDS: LOPRESSOR IV SCH ×2 (11:47→22:46)
[2019-01-03] MEDS: D5 1/2 NS + KCL 20 MEQ 1,000 ML IV SCH (11:52)
--- NOTE | 2019-01-03 13:55 | PROGRESS NOTE ---
DATE: 01/03/2019 Mr. Waters is awake, alert, attentive. He seems brighter today. His speech is definitely more easily understood right now. He voluntarily and repeatedly squeezed my fingers with his left hand to command. Left hemianopia persists. IMPRESSION: Large right hemisphere subdural hematoma, stable and improved clinically, no evidence of increased intracranial pressure, no evidence of new bleeding or herniation. We will need followup imaging when practical. I do not think that is urgent. He is clearly stable and improved today and we can make decision day by day, noncontrast CT over the or Sunday, sooner if he deteriorates. Thanks for asking Neurology to see Mr. Waters. cc: MD Italo Dickerson III, MD MTDD
[2019-01-04] MEDS: ZOSYN 3.375 GM in NS 50 ML IV SCH ×4 (04:02→22:19)
[2019-01-04] MEDS: FLAGYL 500 MG/NS 500 MG/100 ML IVPB IV SCH ×3 (05:03→21:07)
[2019-01-04] MEDS: LOPRESSOR IV SCH ×2 (10:17→22:19)
--- NOTE | 2019-01-04 13:04 | PROGRESS NOTE ---
DATE: 01/04/2019 VITAL SIGNS: Temperature 98.3 degrees, heart rate 86, respirations 20, blood pressure 135/71, O2 saturation on room air 96%. SUBJECTIVE: Laboratory: INR on 01/02/2019 was 1.28. He had a loose dark stool this morning. Specimen was sent for occult blood study. There is history of colitis and he is currently on Zosyn and Flagyl. He has a large right subdural hematoma, which is causing left hemiparesis. He could move his left leg some, but no motion of the left arm. He also has some dysphasia and dysphagia. He is noted to have whitish plaque over his tongue and inside his cheeks. This is felt to be a yeast infection. He is currently DNR level 1. PLAN: Continue supportive care. He is DNR level 1. Barium swallow will be done tomorrow. He is able to swallow some liquids, but yesterday had trouble with pudding. He took a couple of bites of applesauce today. Protonix is started IV due to the possible melena. Lab will be rechecked tomorrow morning. cc: MD Italo Nguyen MD
[2019-01-04] MEDS: NEXIUM IV SCH (15:20)
[2019-01-04] MEDS: MYCOSTATIN SUSP PO SCH ×2 (18:44→22:19)
[2019-01-04] MEDS: DIFLUCAN 100 MG/NS 100 MG/50 ML IVPB IV SCH (19:21)
[2019-01-04] MEDS: D5 1/2 NS + KCL 20 MEQ 1,000 ML IV SCH ×2 (20:00→20:20)
[2019-01-05] MEDS: ZOSYN 3.375 GM in NS 50 ML IV SCH ×4 (03:56→22:40)
[2019-01-05] MEDS: FLAGYL 500 MG/NS 500 MG/100 ML IVPB IV SCH ×3 (04:27→22:40)
[2019-01-05 07:45] LABS: BASO# 0.04 X1000 (0.0-0.2); BASO% 0.4 % (0.0-0.8); EOS# 0.13 X1000 (0.0-0.7); EOS% 1.5 % (0.0-10.0); HEMATOCRIT 41.9 % (42.0-52.0); HEMOGLOBIN 14.3 g/dL (14.0-18.0); IMM GRAN# 0.02 X1000 (0.0-0.04); IMM GRAN% 0.2 % (0.0-0.5); LYMPH# 1.93 X1000 (1.2-3.4); LYMPH% 21.6 % (20.5-51.1); MCH 31.6 PG (27-31); MCHC 34.1 g/dL (33-37); MCV 92.7 FL (81-99); MONO# 0.74 X1000 (0.11-0.59); MONO% 8.3 % (1.7-9.3); MPV 10.7 FL (7.4-10.4); NEUT# 6.06 X1000 (1.4-6.5); PLT 168 X1000 (130-400); RBC 4.52 XMIL (4.7-6.1); RDW 14.9 % (11.5-14.5); WBC 8.92 X1000 (4.8-10.8)
[2019-01-05 07:56] LABS: AGAP 10; BUN 21 mg/dL (8-22); CALCIUM 8.1 mg/dL (8.8-10.2); CHLORIDE 108 mmol/L (98-107); COSMO 284; ESTIMATED GFR > 60; GLUCOSE 132 mg/dL (70-104); POTASSIUM 3.8 mmol/L (3.5-5.1); SODIUM 140 mmol/L (136-145); TCO2 22 mmol/L (25-35)
[2019-01-05] MEDS ORDERED: LASIX IV ONE (09:28)
--- NOTE | 2019-01-05 09:47 | PROGRESS NOTE ---
DATE: 01/05/2019 Temperature 97.8 degrees, heart rate 86, respirations 20, blood pressure 139/87, O2 saturation on room air 98%. The patient is a little less alert this morning and with audible chest congestion. Lungs reveal scattered rhonchi bilaterally. There is a possibility of aspiration. He is sitting up at about 60 degrees. He had less p.o. intake today. Thrush in his mouth has improved some. PLAN: Nebulizer treatment with mask q.i.d. with albuterol and Atrovent, IV Lasix, chest x-ray, portable. He is scheduled for a swallowing test tomorrow. cc: MD Italo Nguyen MD
[2019-01-05] MEDS: D5 1/2 NS + KCL 20 MEQ 1,000 ML IV SCH (10:39)
[2019-01-05] MEDS: MYCOSTATIN SUSP PO SCH ×4 (10:42→22:40)
[2019-01-05] MEDS: LOPRESSOR IV SCH ×2 (10:42→22:40)
[2019-01-05] MEDS: NEXIUM IV SCH (10:53)
--- NOTE | 2019-01-05 12:16 | Diag Imaging Result Doc PS360 ---
EXAM: CHEST-PORTABLE 01/05/2019 HISTORY: ronnicole chest TECHNIQUE: AP upright at 1144 COMMENT: There continues to be some ill-defined opacity in the lingula and left base. The parahilar opacity seen on the right on the previous study has apparently improved. The inspiration is actually less optimal on the current study. IMPRESSION: Lingular and left lower lobe pneumonia. Electronically signed by Lukas King 01/05/2019 12:13 PM
[2019-01-05] MEDS: DUONEB (A & A) INH SCH ×2 (16:00→22:28)
[2019-01-05] MEDS ORDERED: ZOSYN ONE (17:16)
[2019-01-05] MEDS: DIFLUCAN 100 MG/NS 100 MG/50 ML IVPB IV SCH (17:52)
[2019-01-05] MEDS: MORPHINE IV PRN (23:34)
[2019-01-06] MEDS: D5 1/2 NS + KCL 20 MEQ 1,000 ML IV SCH ×2 (01:45→17:26)
[2019-01-06] MEDS: DUONEB (A & A) INH SCH ×4 (03:26→20:00)
[2019-01-06] MEDS: FLAGYL 500 MG/NS 500 MG/100 ML IVPB IV SCH ×3 (05:09→22:02)
[2019-01-06] MEDS: ZOSYN 3.375 GM in NS 50 ML IV SCH ×4 (05:09→22:02)
[2019-01-06] MEDS: MORPHINE IV PRN ×3 (05:18→19:03)
[2019-01-06 07:31] LABS: BASO# 0.04 X1000 (0.0-0.2); BASO% 0.5 % (0.0-0.8); EOS# 0.15 X1000 (0.0-0.7); EOS% 1.7 % (0.0-10.0); HEMATOCRIT 43.2 % (42.0-52.0); HEMOGLOBIN 14.4 g/dL (14.0-18.0); LYMPH# 1.93 X1000 (1.2-3.4); LYMPH% 22.2 % (20.5-51.1); MCH 31.7 PG (27-31); MCHC 33.3 g/dL (33-37); MCV 95.2 FL (81-99); MONO% 9.2 % (1.7-9.3); MPV 10.3 FL (7.4-10.4); NEUT# 5.77 X1000 (1.4-6.5); NEUT% 66.4 % (42.2-75.2); PLT 159 X1000 (130-400); RBC 4.54 XMIL (4.7-6.1); RDW 15.4 % (11.5-14.5); WBC 8.69 X1000 (4.8-10.8)
--- NOTE | 2019-01-06 08:17 | PROGRESS NOTE ---
DATE: 01/06/2019 SUBJECTIVE: The patient took a turn for the worse the past 72 hours. He has not been able to know is family much, and is not conversant, laying with his head turned to the left, moans on occasion. OBJECTIVE: Vital Signs: Afebrile, pulse 98, respirations 18, blood pressure 106/61, O2 saturation room on air is 93%. CV: Irregularly irregular. Lungs: Mild rhonchi and wheezes bilaterally. Abdomen: Nondistended, nontender. Extremities: No calf tenderness, cords, or edema. Neurologic: The patient is arousable to deep stimuli only. IMAGING AND LABORATORY DATA: Occult blood positive. White count 8.6, hemoglobin 14.4, platelets 159,000. BMP from yesterday showed potassium 3.8, creatinine 1.0, calcium 8.1. Chest x-ray yesterday revealed pneumonia on the left. ASSESSMENT: 1. Large right subdural hematoma with worsened symptoms over the past 72 hours. 2. Left pneumonia. 3. Hemoccult-positive stool. 4. Chronic atrial fibrillation. 5. History of remote ischemic cerebrovascular accident. 6. History of small-bowel obstruction with severe diverticulitis, overall improved on antibiotics. 7. Baseline dementia. 8. Malnutrition. 9. Thrush, on intravenous Diflucan per Dr. Venegas. PLAN: With the patient's worsened mental status, discussed with his , and will continue to hold the course. At this time, he is on supportive medications. Will continue IV fluids, DuoNebs, IV antibiotics in the form of Zosyn and Flagyl, and he is on Diflucan and IV PPI. Continue supportive care, and if not improved in the next 1 to 2 days, would consider hospice care. Appreciate Dr. Palm's help in this patient's care. He is scheduled for a barium swallow today, but it appears that he may not be able to cooperate and participate in the evaluation. cc: Italo Pierce MD
[2019-01-06] MEDS: LOPRESSOR IV SCH ×3 (09:41→22:02)
[2019-01-06] MEDS: MYCOSTATIN SUSP PO SCH ×4 (09:41→22:02)
--- NOTE | 2019-01-06 09:43 | PROGRESS NOTE ---
DATE: 01/06/2019 SUBJECTIVE: reports Mr. Waters became hard to arouse 48 hours ago. He continued somnolent through the weekend and this morning has similar appearance. PHYSICAL EXAMINATION: On exam now, he appears somnolent and sleeping. With moderate stimulation, he was awake, grumbled, mumbled. He did not communicate beyond that. He did not speak to me. He used his right arm purposefully, but not to command. He did not use his left limbs. IMPRESSION: Somnolent. This may be from intracranial pressure associated with edema and known subdural hematoma, but we need to make sure he has not had further bleeding. I do not see clinical evidence of herniation based on bedside exam of brainstem reflexes. I will order noncontrast CT and further plans will depend on that report. I discussed with the baseline dementia as a predisposing factor to more profound and protracted encephalopathy with any toxic or metabolic disturbance. Thanks for asking neurology to see Mr. Arthur. cc: MD Italo Dickerson III, MD
--- NOTE | 2019-01-06 11:51 | Diag Imaging Result Doc PS360 ---
EXAM: CT HEAD W/O CONTRAST HISTORY: compare with prior scan TECHNIQUE: CT head without contrast COMPARISON: 01/01/2019 FINDINGS: There is a large right-sided subdural hematoma with chronic and acute components. This measures approximately 3 cm laterally. There is approximately 1.5 cm midline shift from the right to the left. This has slightly increased since the prior exam. There is compression upon the right lateral ventricle. No parenchymal hemorrhage. IMPRESSION: Large right subdural hematoma with midline shift. Although the size of the hematoma has not significantly increased in size the midline shift has slightly increased. This exam was performed using automated exposure control, adjustment of mA or kV according to patient size, and/or use of iterative reconstruction technique. Electronically signed by Abdelrahman Huffman 01/06/2019 11:49 AM
[2019-01-06] MEDS: NEXIUM IV SCH (12:08)
[2019-01-06] MEDS: SODIUM CHLORIDE 0.9% INJ SCH (12:08)
[2019-01-06] MEDS: DIFLUCAN 100 MG/NS 100 MG/50 ML IVPB IV SCH (18:55)
[2019-01-07] MEDS: MORPHINE IV PRN ×6 (00:15→23:29)
[2019-01-07] MEDS: DUONEB (A & A) INH SCH ×4 (03:25→20:04)
[2019-01-07] MEDS: ZOSYN 3.375 GM in NS 50 ML IV SCH (04:10)
[2019-01-07] MEDS: FLAGYL 500 MG/NS 500 MG/100 ML IVPB IV SCH (04:11)
[2019-01-07] MEDS ORDERED: SALINE LOCK IV FLUID XX ONE (08:22)
--- NOTE | 2019-01-07 08:52 | PROGRESS NOTE ---
DATE: 01/07/2019 SUBJECTIVE: The patient continues to have no purposeful movements and not greatly responsive, except with painful stimuli. He is starting to have some skin breakdown at the perineal area, so we are going to place a Royal catheter in that regard. He has a lot of secretions and phlegm production this morning. OBJECTIVE: Vital Signs: Afebrile, pulse 91, respirations 17, blood pressure 112/74, O2 saturation on room air 98%. CV: Irregularly irregular. Lungs: Rhonchi and crackles bilaterally. Abdomen: Soft. Active bowel sounds. No distention. Extremities: No calf tenderness, cords, or edema. Neurologic: The patient is looking to the left. He is responsive to sternal rub. 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 Not verbal. IMAGING AND LABORATORY DATA: Lab data reviewed from the last [address] scan of the head repeated yesterday per Dr. Palm reveals large right subdural hematoma with midline shift. Size of the hematoma has not significantly increased, but the midline shift has slightly increased. ASSESSMENT: 1. Large right subdural hematoma with midline shift to the left with generalized worsening. 2. Pneumonia. 3. Hemoccult-positive stool. 4. Chronic atrial fibrillation. 5. History of remote ischemic cerebrovascular accident. 6. Recent small-bowel obstruction with severe diverticulitis. 7. Baseline dementia. 8. Malnutrition. 9. Thrush. 10. DO NOT RESUSCITATE level 1. PLAN: Reassessed and discussed with his in detail. She is interested in evaluation per hospice. Will stop his IV fluids and his IV antibiotics of Zosyn and Flagyl. Will give him a scopolamine patch, and place Royal catheter, and increase the frequency of his morphine as he is having some moaning on occasion with the every 4 hour p.r.n. dosage. Continue IV Diflucan and DuoNebs at this point. Will await hospice evaluation. cc: Italo Pierce MD
--- NOTE | 2019-01-07 09:05 | PROGRESS NOTE ---
DATE: 01/07/2019 LOCATION: Room 328. OBJECTIVE: The patient continues obtunded. With stimulation, he is briefly awake, follows simple commands, grumbles, and then seems back to sleep when not stimulated. He did not use his left limbs. He did use the right arm purposefully. Neck remains supple without meningismus. Repeat CT showed minimal evidence of increased midline shift, right to left, but stable right subdural hematoma. There is not evidence of herniation. I discussed findings and situation with at the bedside. His baseline dementia predisposes him to more protracted and prominent encephalopathy features. I do not think adding cholinesterase inhibitor is urgent, but that could be considered later. We discussed steroids for cerebral edema, but I suspect he has reached maximum edema, and steroids are not necessary at this point. I do not think neurosurgical intervention is warranted right now and I discussed that with . No new suggestions today. Would continue support and follow clinically. Likely will need another CT scan in several days, sooner if he deteriorates. Thank you for asking Neurology to see Mr. Waters. cc: MD Italo Dickerson III, MD MTDD
[2019-01-07] MEDS: TRANSDERM-SCOP TD SCH (10:07)
[2019-01-07] MEDS: SODIUM CHLORIDE 0.9% INJ SCH (11:50)
[2019-01-07] MEDS: NEXIUM IV SCH (11:50)
[2019-01-07] MEDS: MYCOSTATIN POWDER TOP SCH ×2 (11:51→21:15)
[2019-01-07] MEDS: LOPRESSOR IV SCH ×2 (11:51→21:15)
[2019-01-07 16:03] LABS: URINE SOURCE CATH
[2019-01-07 16:06] LABS: BILIRUBIN URINE NEGATIVE (NEGATIVE); BLOOD URINE MODERATE (NEGATIVE); COLOR ORANGE; GLUCOSE URINE NEGATIVE (NEGATIVE); KETONE URINE TRACE mg/dL (NEGATIVE); LEUKOCYTES URINE NEGATIVE (NEGATIVE); NITRITE URINE NEGATIVE (NEGATIVE); PH URINE 5.5; PROTEIN URINE 50 mg/dL (NEGATIVE); SP GRAVITY URINE 1.031; TURBIDITY URINE CLEAR (CLEAR); UR EPITHELIAL CELLS <10 /HPF (<10); URINE BACTERIA NEGATIVE /HPF; URINE RBC 20-40 /HPF (<10); URINE WBC <10 /HPF (<10); UROBILINOGEN URINE NORMAL (NORMAL)
[2019-01-07] MEDS: DIFLUCAN 100 MG/NS 100 MG/50 ML IVPB IV SCH (18:26)
[2019-01-08] MEDS: MORPHINE IV PRN ×6 (01:56→23:49)
[2019-01-08] MEDS: DUONEB (A & A) INH SCH ×4 (03:42→19:42)
[2019-01-08] MEDS: ZOFRAN IV PRN ×2 (07:51→15:23)
[2019-01-08] MEDS: MYCOSTATIN POWDER TOP SCH ×3 (07:57→20:55)
[2019-01-08] MEDS: CALMOSEPTINE OINTMENT TOP PRN (08:22)
[2019-01-08] MEDS: LOPRESSOR IV SCH ×2 (11:28→23:48)
--- NOTE | 2019-01-08 18:13 | PROGRESS NOTE ---
DATE: 01/08/2019 OBJECTIVE: Mr. Waters is more responsive today. He mumbled, grumbled, groaned. He seemed to attempt some speech, but I could not understand his words. He used his right limbs purposefully. I did not see left limb movement. IMPRESSION: Large right subdural hematoma, significant mass effect and midline shift. He seems less obtunded today. There is no new neurologic finding. Baseline cognitive impairment is a negative factor regarding prognosis. I do not have any urgent suggestion from a neurologic standpoint. I agree with plans for conservative management. We might consider repeating noncontrast CT later. Thanks for asking Neurology to see Mr. Waters. cc: MD Italo Dickerson III, MD MTDD
[2019-01-08] MEDS: DIFLUCAN 100 MG/NS 100 MG/50 ML IVPB IV SCH (18:24)
[2019-01-08] MEDS: NEXIUM IV SCH (18:32)
--- NOTE | 2019-01-08 21:36 | PROGRESS NOTE ---
DATE: 01/08/2019 SUBJECTIVE: The patient has had some moaning at times and nursing staff have been repositioning the patient. He is alert at times but does not have any intelligible speech. He does not know his family or me. It appears he is not in any pain, but he does moan on occasion, but it appears not purposefully. OBJECTIVE: Afebrile. Pulse 93, respirations 18, blood pressure 108/65, O2 saturation on room air 95%. CV: Irregularly irregular.Lungs: Mild rhonchi bilaterally. Good air movement. Abdomen soft, nondistended. Extremities: No calf tenderness, cords or edema. Flaccid paralysis persists, left arm. No major movement at the left leg. He does move his right arm and leg some. Moans. He has left facial droop. ASSESSMENT: 1. Large right subdural hematoma with midline shift to the left. 2. Do Not Resuscitate/Allow Natural level 1. 3. Pneumonia. 4. Hemoccult-positive stool. 5. Chronic atrial fibrillation. 6. Remote history of ischemic cerebrovascular accident. 7. Recent small-bowel obstruction with severe diverticulitis. 8. Baseline dementia. 9. Malnutrition. 10. Thrush. PLAN: For now we have him off IV fluids and his IV antibiotics, and we have him on scopolamine patch with Royal catheter in place. Morphine 2 mg; we had increased the dose to 2 mg q.4 hours this morning p.r.n. pain. Also we have him on IV Diflucan and DuoNeb. Palliative Care team has been discussing hospice care with the family versus group home placement, and they are still trying to decide which way to go in this regard. We will continue comfort measures at this time. cc: Italo Pierce MD
[2019-01-09] MEDS: MORPHINE IV PRN ×5 (02:41→23:07)
[2019-01-09] MEDS: DUONEB (A & A) INH SCH ×4 (03:51→20:06)
[2019-01-09] MEDS: MYCOSTATIN POWDER TOP SCH ×3 (09:28→20:09)
--- NOTE | 2019-01-09 11:46 | PROGRESS NOTE ---
DATE: 01/09/2019 There is nothing significantly changed on brief clinical exam. He mumbles and groans, and does not communicate beyond that. He does not move his left limbs. Discussed with at the bedside. She reports hospice will take over. I will sign off and be glad to see again if needed. Only suggestion is to consider another CT scan at some point in the future to document extent of residual. Thanks for asking Neurology to see Mr. Waters. cc: MD Italo Dickerson III, MD
[2019-01-09] MEDS: LOPRESSOR IV SCH ×2 (12:28→23:07)
[2019-01-09] MEDS: NEXIUM IV SCH (13:16)
[2019-01-09] MEDS: DIFLUCAN 100 MG/NS 100 MG/50 ML IVPB IV SCH (17:11)
--- NOTE | 2019-01-09 20:33 | PROGRESS NOTE ---
DATE: 01/09/2019 SUBJECTIVE: Patient has had a fair amount of groaning and moaning and is moving his right arm and leg at times, but no purposeful movement, and with sternal rub, he is minimally arousable. OBJECTIVE: Vital Signs: Afebrile, pulse in the low 100s. CV: Irregularly irregular. Lungs: Rhonchi bilaterally, mild to moderate, right greater than left. Abdomen: Nondistended. Extremities: No calf tenderness, cords, or edema. Neurologic: Minimally responsive to deep sternal rub, and occasionally nonpurposefully moves the right arm and leg. Flaccid paralysis, left arm, persistent. ASSESSMENT: 1. Large right subdural hematoma with prominent midline shift to the left. 2. Do Not Resuscitate level 1. 3. Pneumonia. 4. Hemoccult positive stool. 5. Chronic atrial fibrillation. 6. History of prior ischemic cerebrovascular accident. 7. History of recent small bowel obstruction with severe diverticulitis. 8. Baseline dementia. 9. Malnutrition. 10. Thrush. PLAN: The patient has discussed care options with [facility] [employer] and with two hospice groups, and she desires comfort care hospice. She desires to arrange things to be set up at her home for discharge home on 01/11/2019. Until then, she desires increasing the pain medication as she is fearful that her is in pain, and I agree that we should increase this as he is moaning and groaning quite a bit. Continue scopolamine patch, Royal care, and intravenous Diflucan and DuoNebs. Will continue to not pursue antibiotics and intravenous fluids at this time. He remains supportive comfort care only. Hospice will begin treatment at home on 01/11/2019. cc: Italo Pierce MD
[2019-01-10] MEDS: MORPHINE IV PRN ×5 (00:39→23:20)
[2019-01-10] MEDS: DUONEB (A & A) INH SCH ×4 (03:45→21:25)
[2019-01-10] MEDS: TRANSDERM-SCOP TD SCH (08:54)
[2019-01-10] MEDS: MYCOSTATIN POWDER TOP SCH ×2 (11:52→20:12)
[2019-01-10] MEDS: NEXIUM IV SCH (11:52)
[2019-01-10] MEDS: LOPRESSOR IV SCH ×2 (11:53→23:25)
--- NOTE | 2019-01-10 14:12 | PROGRESS NOTE ---
DATE: 01/10/2019 SUBJECTIVE: Patient is awake. He is being bathed by the bath team. He is not responsive as far as no verbal and is not moaning presently. OBJECTIVE: Afebrile, pulse 107, respirations 16, blood pressure 130/91.CV: Irregularly irregular. Lungs: Clear. Abdomen: Nondistended. Extremities: No calf tenderness, cords or edema. Flaccid paralysis left arm persists. Moves his right arm and leg. Patient nonverbal, but alert. ASSESSMENT: 1. Large right subdural hematoma with prominent midline shift to the left with hospice care being arranged. 2. Do not resuscitate level 1. 3. Pneumonia improved overall clinically. 4. Hemoccult-positive stool. 5. Chronic atrial fibrillation, off anticoagulation. 6. Prior history of ischemic cerebrovascular accident. 7. Baseline dementia. 8. Recent small bowel obstruction with severe diverticulitis, off antibiotics and IV fluids per family request. 9. Malnutrition. 10. Thrush. PLAN: Family has decided on hospice care. wants to start that tomorrow at home. Arrangements are being made with bed placement at home and supplies being carried to his home. His says she wants to do that tomorrow as this is her birthday today. We will continue the IV Diflucan currently and his duo nebs. He is off IV fluids and off antibiotics and family desiring comfort care only. cc: Italo Pierce MD
[2019-01-10] MEDS: DIFLUCAN 100 MG/NS 100 MG/50 ML IVPB IV SCH (17:21)
[2019-01-11] MEDS: MORPHINE IV PRN ×5 (03:03→13:58)
[2019-01-11] MEDS: DUONEB (A & A) INH SCH ×2 (03:45→08:50)
[2019-01-11] MEDS: LOPRESSOR IV SCH (11:42)
[2019-01-11] MEDS: MYCOSTATIN POWDER TOP SCH (11:43)
[2019-01-11 11:48] VITALS: BP 173/88
--- NOTE | 2019-01-11 14:49 | DISCHARGE SUMMARY ---
ADMISSION DATE: 12/27/2018 DISCHARGE DATE: 01/11/2019 DIAGNOSES: 1. Large right subdural hematoma with prominent midline shift to the left with hospice arranged. 2. DNR level 1. 3. SBO on admission with severe diverticulitis. 4. Pneumonia. 5. Hemoccult-positive stool. 6. Chronic atrial fibrillation. 7. Baseline dementia [id number]. 8. Malnutrition. 9. Thrush. PROCEDURES: 1. CT abdomen and pelvis with IV contrast only, done 12/26/2018 revealing high-grade proximal SBO, rule out mass versus enteritis. Also notable with cardiomegaly and pulmonary fibrosis. Severe diverticulosis of the sigmoid colon. 2. Flat and upright of the abdomen with one view of the chest done 12/29/2018 revealing no evidence of bowel obstruction, ill defined opacities throughout the lung doran bilaterally. 3. CT scan of the head done without contrast on 12/30/2018 revealing massive acute subdural hematoma on the right with marked mass effect. 4. CT scan of the head without contrast done 01/01/2019. No change from prior. 5. CT scan of the head without contrast done 01/06/2019 revealing large right subdural hematoma with midline shift. Although the size of the hematoma has not significantly increased, the midline shift has slightly increased. CONSULTANTS: Dr. Trav Terry, General Surgery. Dr. Delores Palm III, Neurologist. REASON FOR ADMISSION, HOSPITAL COURSE AND BRIEF SUMMARY: The patient is a 78-year-old white male followed in my medical practice. He is followed by the [facility] and came in with chronic atrial fibrillation on chronic anticoagulation with Coumadin, followed in the [facility] by Cardiology. He came in with abdominal pain and was noted on CT of the abdomen and pelvis to have findings of small-bowel obstruction and this was thought to possibly be related to diverticulitis on a bowel per Dr. Terry. We placed him on IV antibiotics of Zosyn and Flagyl, and NG tube was placed. Patient seems to be improving some and INR, and the patient was anticoagulated initially on hospitalization due to his chronic Coumadin. This was stopped on admission and his INR was sluggish to come down, so he was given vitamin K and subsequently began to decline. Unfortunately on 12/30/2018, patient suffered acute change in his mental status and CT scan of the head was obtained, was obtained and showed large right subdural hematoma with midline shift initially for about 3 days. The patient seemed to tolerate that well for the situation and Dr. Palm was consulted and followed the patient. Due to his baseline dementia and the SBO diverticulitis, he was not thought to be a candidate for surgery/subdural drainage. He developed worsening and became unresponsive toward the latter few days of the hospitalization and had flaccid paralysis of his left arm and paralysis of his left leg. He did move his right arm and leg but this by discharge was nonpurposeful. The patient was maintained on some off and on mild IV fluids and IV antibiotics while the family considered options to include PEG placement and ongoing treatment versus hospice considerations and ultimately they decided on DNR level 1 and hospice. That was arranged and he was discharged home on hospice care. cc: Italo Pierce MD
== END 2019-01-11 14:09 | disposition hospice, home (50) | DRG 391 ==
LOC: ED 21:33 → 3N 12-27 02:25 → SUATTDRO 12-27 02:25 → 3N 12-30 22:10
PROVIDERS: ADMIT Family Medicine; ATTEND Family Medicine
CPT/HCPCS: 36415; 70450; 71010; 71045; 74000; 74018; 74022; 74177; 80048; 80053; 80076; 80162; 81001; 82270; 82550; 83690; 83735; 83880; 84484; 85025; 85610; 85730; 87324; 93005; 94640; 94760; 94761; 96361; 96374; 96375; 97110; 97162; 97530; 99285; A9270; J1160; J1450; J1630; J1940; J2060; J2270; J2405; J2543; J2780; J3430; J3480; J7030; J7042; Q9967; S0028; S0030